=== PATIENT | female | born 1975 | race Caucasian/White ===

== ENCOUNTER → 2016-06-08 | Outpatient (CLI) | payer OTHER ==
--- NOTE | 2016-06-08 15:10 | DIAGNOSTIC IMAGING REPORT ---
PROCEDURE: MR LOWER EXT JOINT WO CONT-RT INDICATION: RT KNEE PAIN TECHNIQUE: T1 and STIR sagittal, axial, coronal and coronal-oblique images. COMPARISON: None. FINDINGS: Normal cruciate and collateral ligaments. Normal menisci. Normal quadriceps tendon. Mild patellar tendinosis proximally. Mild spurring of the patella with mild to moderate chondromalacia. Mild lateral subluxation of the patella. Moderate effusion. No popliteal cyst. Bones are unremarkable. IMPRESSION: 1. 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 Mild patellar tendinosis 3. Moderate effusion
== END ==
LOC: MRI SRH 10:15
DX: S83.011A Lateral subluxation of right patella, initial encounter (principal); M22.41 Chondromalacia patellae, right knee; M25.461 Effusion, right knee; M76.51 Patellar tendinitis, right knee